=== PATIENT | female | born 1950 | race African-American/Black ===

== ENCOUNTER 2016-11-25 19:25 | Emergency (ER) | payer MEDICARE, OTHER ==
[~2016-11-25] VITALS: Ht 165.1 cm; Wt 81.8 kg
[~2016-11-25 19:25] MED LIST: ASPI325T PO; HYDR25TA PO; NIFE10 PO
[2016-11-25] MEDS ORDERED: SITA100 PO (19:45)
[2016-11-25] MEDS ORDERED: AMLO-512 PO (19:45)
[2016-11-25] MEDS ORDERED: ATOR40TA28 PO (19:45)
[2016-11-25] MEDS ORDERED: LISI-662 PO (19:45)
[2016-11-25 21:16] VITALS: BP 125/68
[2016-11-25] MEDS ORDERED: HYDROCODONE/ACETAMINOPHEN 5-325 MG TABLET PO ONE (22:00)
[2016-11-25] MEDS ORDERED: IBUPROFEN 800 MG TABLET PO ONE (22:00)
== END 2016-11-25 23:38 | disposition home or self-care (01) ==
LOC: EMS 19:27
DX: S82.61XA Displaced fracture of lateral malleolus of right fibula, initial encounter for closed fracture (principal); S70.01XA Contusion of right hip, initial encounter; I10 Essential (primary) hypertension; W19.XXXA Unspecified fall, initial encounter; Y93.89 Activity, other specified; Y92.091 Bathroom in other non-institutional residence as the place of occurrence of the external cause; Y99.8 Other external cause status
CPT/HCPCS: 29515; 73502; 99284